=== PATIENT | female | born 1955 | race Asian ===

== ENCOUNTER 2024-04-27 11:32 | Emergency (ER) | payer MEDICARE, MEDICAID, SELFPAY ==
[2024-04-27 11:33] VITALS: BMI 28.3
[2024-04-27 11:39] VITALS: BP 184/100; BP 191/101; PULSE 74; RESP 16; TEMP 36.6; O2SAT 96
--- NOTE | 2024-04-27 11:50 | XR_ITS ---
Examination: CT brain head without contrast. 2-D sagittal coronal reconstructions Date and time of exam:April 16, 2024 1234 hours INDICATIONS: Headaches numbness in the extremities today right eye swelling CTDI: vol (mGy):44.5 DLP: (mGycm):840 Technique: Multiple CT axial sections of the brain have been obtained, 5 mm slice thickness. Contrast has not been administered. 2-D sagittal, coronal reconstructions have been obtained Low dose protocols were performed. One or more of the following dose reduction techniques were used; automated exposure control, adjustment of the mA and/or KV according to patient size, use of iterative reconstruction technique. Findings: No significant ventricular enlargement. Intra-axial or extra-axial hemorrhage density is not seen. No mass effect or midline shift Basal cisterns are not remarkable. Fourth ventricle is midline. Cranial vault intact. Impression: Negative for acute hemorrhage, mass effect or midline shift Consider brain MRI MRA without contrast, stroke protocol, follow-up
--- NOTE | 2024-04-27 11:50 | EKG_ITS ---
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
--- NOTE | 2024-04-27 11:50 | XR_ITS ---
Examination: PA lateral chest 2 views TECHNIQUE: Upright PA lateral chest 2 views Exam date and time: April 27, 2024 12:21 PM INDICATIONS: Onset chest pain elevated blood pressure dizziness today. FINDINGS: Normal heart size Suspicious for parenchymal disease in the right apex possibly cavitary Blunting of the right lateral costophrenic angle No pulmonary edema Blunting of the posterior costophrenic angles IMPRESSION: Recommend CT chest without contrast follow-up to exclude cavitary parenchymal disease right apex
--- NOTE | 2024-04-27 11:50 | PD.EDRME ---
Rapid Medical Screening Exam RME Arrival date/time: 04/27/24 11:32 69-year-old female with history of hypertension presents to the emergency department with complaint of headache, dizziness, generalized bodyaches Chief Complaint: Neuro Symptoms/Deficit Vital signs: Vital Signs Temperature 97.9 F 04/27/24 11:39 Pulse Rate 74 04/27/24 11:39 Respiratory Rate 16 04/27/24 11:39 Blood Pressure 191/101 H 04/27/24 11:39 Pulse Oximetry (%) 96 04/27/24 11:39 Oxygen Delivery Method Room Air 04/27/24 11:39
[2024-04-27 12:16] LABS: Basophils % (Auto) 1 % (0-2.5); Eosinophils # (Auto) 0.2 Thou/mm3 (0.0-0.5); Eosinophils % (Auto) 4 % (0-10); Hematocrit 37.8 % (36.0-46.0); Hemoglobin 12.4 g/dL (12.0-16.0); Immature Granulocytes % (Auto) 0 % (0-0); Immature Granulocytes Auto 0.01 Thou/mm3 (0.00-0.00); Lymphocytes # (Auto) 2.2 Thou/mm3 (1.0-4.8); Lymphocytes % (Auto) 49 % (10-50); Mean Corpuscular HGB Conc 32.8 g/dl (31.0-37.0); Mean Corpuscular Hemoglobin 25.8 pg (25.0-35.0); Mean Corpuscular Volume 79 fL (80-100); Monocytes # (Auto) 0.3 Thou/mm3 (0.0-0.8); Monocytes % (Auto) 7 % (0-12); Neutrophils # (Auto) 1.7 Thou/mm3 (1.8-7.7); Neutrophils % (Auto) 39 % (37-80); Nucleated Red Blood Cell % 0 /100 WBC (0); Platelet Count 206 Thou/mm3 (140-440); RDW Standard Deviation 38.7 fL (36.4-46.3); White Blood Count 4.4 Thou/mm3 (3.6-11.0)
[2024-04-27 12:33] LABS: Partial Thromboplastin Time 26.6 Seconds (22.0-36.0)
[2024-04-27 12:38] LABS: Alanine Aminotransferase 19 U/L (10-49); Albumin, Serum 4.5 gm/dL (3.4-4.8); Albumin/Globulin Ratio 1.4 (1.2-2.2); Alkaline Phosphatase 56 U/L (46-116); Anion Gap 8 (7-16); Aspartate Amino Transferase 20 U/L (0-34); BUN/Creatinine Ratio 25 Ratio (12-20); Bilirubin,Total 0.7 mg/dL (0.3-1.2); Blood Urea Nitrogen 15 mg/dL (9-23); Calcium 9.4 mg/dL (8.3-10.6); Calcium (Corrected) 9.4 mg/dL (8.5-10.1); Carbon Dioxide 26.2 mMol/L (20.0-31.0); Chloride 106 mMol/L (98-107); Creatinine (Component) 0.6 mg/dL (0.6-1.3); Globulin 3.2 gm/dL (2.3-3.5); Glucose 102 mg/dL (74-106); Osmolality,Calculated 280 (275-295); Potassium 3.6 mMol/L (3.4-5.1); Sodium 140 mMol/L (136-145); Total Protein 7.7 gm/dL (5.7-8.2); eGFR > 60 See Note
[2024-04-27 12:44] LABS: B-Type Natriuretic Peptide 37 pg/mL (0-100)
[2024-04-27 12:52] LABS: Troponin I < 0.020 ng/mL (0.0-0.045)
[2024-04-27 13:23] LABS: Collection Type, Urine Clean Catch
[2024-04-27 13:38] LABS: Bilirubin,Urine Negative (Negative); Blood,Urine Negative (Negative); Clarity,Urine Clear (Clear/Hazy); Color,Urine Lt-Yellow (Lt Yel-Yel); Glucose, Urine Negative (Negative); Ketones,Urine Negative (Negative); Leukocyte Esterase,Urine Negative (Negative); Nitrite,Urine Negative (Negative); PH,Urine 6.5 (5.0-7.0); Protein,Urine Negative (Neg - Trace); RBC,Urine 2 /hpf (0-3); Specific Gravity,Urine 1.015 (1.001-1.035); Squamous Epithelial Cell,Urine 1 /hpf (0-5); Urobilinogen,Urine Negative mg/dL (0.0-1.0); WBC,Urine 1 /hpf (0-5)
[2024-04-27 13:50] LABS: Amphetamine/Methamp Scrn,U Negative (Negative); Barbiturate Screen,Urine Negative (Negative); Benzodiazepines Screen,Urine Negative (Negative); Benzoylecgonine Screen, Ur Negative (Negative); Fentanyl Screen,Urine Negative (Negative); Opiate Screen,Urine Negative (Negative); THC Screen,Urine Negative (Negative)
[2024-04-27 14:42] VITALS: BP 187/118; BP 199/93; PULSE 78; RESP 19; TEMP 36.6; O2SAT 100
--- NOTE | 2024-04-27 14:53 | PD.EDNEURO ---
Neuro Symptoms Deficit-RME/HPI General Chief Complaint: Neuro Symptoms/Deficit Stated Complaint: NUMBNESS TO HANDS/LEGS AND BP 200 Time Seen by Provider: 04/27/24 14:46 Source: patient Arrival date/time: 04/27/24 11:32 69-year-old female with a history of hypertension presents to the emergency room with a chief complaint of numbness to her hands and legs, and dizziness with sudden positional changes. Patient was sent here by her primary care provider. Mode of arrival: ambulatory Limitations: no limitations RME / HPI RME / HPI Narrative: 04/27/24 11:32 69-year-old female with history of hypertension presents to the emergency department with complaint of headache, dizziness, generalized bodyaches Related Data Home Medications ?Medication ?Instructions ?Recorded ?Confirmed ergocalciferol (vitamin D2) 1,250 50,000 unit PO QWEEK 10/26/19 10/26/19 mcg (50,000 unit) capsule (Vitamin D2) lisinopril 40 mg tablet 40 mg PO QDAY 10/26/19 10/26/19 Previous Rx's ?Medication ?Instructions ?Recorded meclizine 25 mg tablet 25 mg PO QDAY PRN dizziness #14 10/26/19 tabs lisinopril 20 mg tablet 20 mg PO QDAY #14 tabs 04/27/24 meclizine 25 mg tablet 25 mg PO BID PRN dizziness #14 tabs 04/27/24 Allergies Allergy/AdvReac Type Severity Reaction Status Date / Time No Known Allergies Allergy Verified 04/27/24 11:35 Review of Systems Review of Systems Systems Reviewed: All systems reviewed, normal except as documented Constitutional Constitutional: Reports system reviewed and no additional complaints, except as documented, Denies fatigue, Denies fever(s), Denies headache(s) and Reports weakness Eyes Eyes: Reports system reviewed and no additional complaints, except as documented, Denies blurry vision, Denies change in vision and Denies loss of vision ENT Ears, Nose, Mouth, and Throat: Reports system reviewed and no additional complaints, except as documented, Denies otalgia, Denies headache(s), Denies nasal congestion, Denies throat swelling and Reports vertigo Cardiovascular Cardiovascular: Reports system reviewed and no additional complaints, except as documented, Denies chest pain, Denies dyspnea and Denies dyspnea on exertion Respiratory Respiratory: Reports system reviewed and no additional complaints, except as documented, Denies chest congestion, Denies cough, Denies dyspnea, Denies dyspnea on exertion and Denies wheezing Gastrointestinal Gastrointestinal: Reports system reviewed and no additional complaints, except as documented, Denies abdominal pain, Denies cramping, Denies nausea and Denies vomiting Genitourinary Genitourinary: Reports system reviewed and no additional complaints, except as documented Musculoskeletal Musculoskeletal: Reports system reviewed and no additional complaints, except as documented, Denies abnormal gait and Denies back pain Integumentary/Breasts Skin/Breast: Reports system reviewed and no additional complaints, except as documented and Denies wounds Neurologic Neurologic: Reports system reviewed and no additional complaints, except as documented, Denies abnormal gait, Denies abnormal movements, Denies abnormal speech, Denies behavioral changes, Denies confusion, Denies headache(s), Reports lack of coordination, Denies loss of vision, Reports paresthesias, Reports vertigo and Reports weakness Psychiatric Psychiatric: Reports system reviewed and no additional complaints, except as documented, Denies anxiety, Denies behavioral changes, Denies confusion, Denies depression, Denies paranoia, Denies suicidal ideation and Denies tactile hallucinations Endocrine Endocrine: Reports system reviewed and no additional complaints, except as documented and Denies fatigue Hematologic/Lymphatic Hematologic/Lymphatic: Reports system reviewed and no additional complaints, except as documented and Denies lymphadenopathy Allergic/Immunologic Allergic/Immunologic: Reports system reviewed and no additional complaints, except as documented, Denies throat swelling, Denies urticaria and Denies wheezing Past Medical History Past Medical History CARDIAC: Positive Hypertension; Negative Congestive Heart Failure RESPIRATORY: Negative Chronic Obstructive Pulmonary Disease (COPD) GENITOURINARY: Negative Renal Disease ENDOCRINE: Negative Diabetes Mellitus Type 1 or Diabetes Mellitus Type 2 Social History SMOKING STATUS: Never smoker ED Exam General Limitations: Present no limitations General appearance: Present alert and in no apparent distress Head Head exam: Present atraumatic, normocephalic and normal inspection Eye Eye exam: Present normal appearance, PERRL and EOMI ENT ENT exam: Present normal exam, normal oropharynx and mucous membranes moist Neck Neck exam: Present normal inspection, full ROM and trachea midline Chest Chest inspection: Present normal inspection and symmetric chest wall rise Respiratory Respiratory exam: Present normal lung sounds bilaterally Cardiovascular Cardiovascular exam: Present regular rate, normal rhythm and normal heart sounds Abdominal Exam Abdominal exam: Present soft and normal bowel sounds Extremities Exam Extremities exam: Present normal inspection and full ROM Back Exam Back exam: Present normal inspection and full ROM Neurological Exam Neurological exam: Present alert, oriented X3, CN II-XII intact, normal gait and reflexes normal Expanded Neurological Exam Patient oriented to: Present person, place and time Speech: Present fluid speech Cranial nerves: Normal: EOM function (II, III, IV, ), facial sensation (V) and facial palsy (VII) Cerebellar function: Normal: finger to nose Cerebellar function: Present normal gait Motor strength - LUE: 5/5 Motor strength - RUE: 5/5 Motor strength - LLE: 5/5 Motor strength - RLE: 5/5 Spinal cord function: Absent saddle anesthesia Coma scale eye opening: spontaneous Coma scale motor response: obeys commands Coma scale verbal response: oriented Coma scale total: 15 Psychiatric Psychiatric exam: Present normal affect and normal mood Skin Skin exam: Present warm, dry, intact and normal color Course Quality Measures none Orders Category Date Time Status EKG (ED ONLY) *Do not use* NOW Care 04/27/24 11:[address] head/brain wo con Stat Exams 04/27/24 11:50 Completed EKG (ED Only) Stat Exams 04/27/24 11:50 Draft XR chest 2V Stat Exams 04/27/24 11:50 Completed B-Type Natriuretic Peptide Stat Lab 04/27/24 12:07 Completed CBC Stat Lab 04/27/24 12:07 Completed Comprehensive Metabolic Panel Stat Lab 04/27/24 12:07 Completed Drug Screen,Urine Stat Lab 04/27/24 13:16 Completed Magnesium Stat Lab 04/27/24 12:07 Completed Partial Thromboplastin Time Stat Lab 04/27/24 12:07 Completed Prothrombin Time with INR Stat Lab 04/27/24 12:07 Completed Troponin I Stat Lab 04/27/24 12:07 Completed Urinalysis Stat Lab 04/27/24 13:16 Completed Meclizine HCl [Antivert] Med 04/27/24 14:48 Discontinued 50 mg PO X1 ONE cloNIDine HCL [Catapres] Med 04/27/24 14:48 Discontinued 0.2 mg PO X1 ONE Vital Signs Vital signs: Vital Signs Temperature 97.9 F 04/27/24 11:39 Pulse Rate 74 04/27/24 11:39 Respiratory Rate 16 04/27/24 11:39 Blood Pressure 191/101 H 04/27/24 11:39 Pulse Oximetry (%) 96 04/27/24 11:39 Oxygen Delivery Method Room Air 04/27/24 11:39 O2 saturation 96% within normal limits Neuro Symptoms / Deficit MDM Narrative [facility] Narrative:: 69-year-old female with a history of hypertension presents to the emergency room with a chief complaint of numbness to her hands and legs, and dizziness with sudden positional changes. Patient was sent here by her primary care provider. Patient is hemodynamically stable and in no apparent distress Physical examination shows a normal neurological exam the patient is a GCS of 15 she is alert and oriented x 4 pupils are PERRLA EOMs are intact Patient is having dizziness with sudden positional changes. CT scan was completed and was negative for any acute findings. CBC and CMP were within normal limits Patient was reevaluated in 1 hour with significant improvement after meclizine Patient was discharged with diagnosis of vertigo and educated to follow-up with primary care provider return to the emergency room for any evidence of worsening signs or symptoms. Patient data External records reviewed:: [facility] previous records Clinical information provided by:: patient Social determinants that could affect healthcare access:: none Patient has the following chronic illnesses:: Hypertension How is presenting disease/condition affected by chronic disease/condition?: exacerbated by Evaluation data The following diagnostics were reviewed and interpreted by me:: lab results and radiology exam(s) Lab and/or radiology exams considered but not ordered:: Labs and radiology exams considered and ordered Interpretation Summary: CT head and brain-Findings: No significant ventricular enlargement. Intra-axial or extra-axial hemorrhage density is not seen. No mass effect or midline shift Basal cisterns are not remarkable. Fourth ventricle is midline. Cranial vault intact. Impression: Negative for acute hemorrhage, mass effect or midline shift Consider brain MRI MRA without contrast, stroke protocol, follow-up Medications / Prescriptions Medications or Prescriptions considered but not ordered:: Medication given Medication administrations:: Medication Administration History Discontinued Medications Clonidine (Clonidine Hcl 0.1 Mg Tablet) 0.2 mg PO X1 ONE Stop: 04/27/24 14:49 Last Admin: 04/27/24 14:58 Dose: 0.2 mg Documented By: RENATO Meclizine HCl (Meclizine Hcl 25 Mg Tablet) 50 mg PO X1 ONE Stop: 04/27/24 14:49 Last Admin: 04/27/24 14:59 Dose: 50 mg Documented By: OA Medication given Consultations Consultation(s) initiated? (list below): No Diagnosis Neuro Differential Diagnosis: subarachnoid hemorrhage, cerebrovascular accident, transient cerebral ischemia and other (Vertigo) Most likely diagnosis given after review of the tests above:: Vertigo Admission Indicated Admission indicated?: not indicated Admission Request Was there a request for admission?: No Disposition Plan Disposition Plan: Discharge Discharge Attestation Discharge Attestation: The patient and all family members were given an opportunity to ask questions and understood the discharge instructions. Discharge instructions specifically effects, indications for sooner follow up or return to the emergency department, and the expected course of current diagnosis. Patient condition: Stable Discharge Plan Plan Patient Disposition: HOME (Self Care) Disposition Comment: Stable Prescriptions/Referrals Prescriptions/Med Rec: New meclizine 25 mg tablet 25 mg PO BID PRN (Reason: dizziness) Qty: 14 0RF lisinopril 20 mg tablet 20 mg PO QDAY Qty: 14 0RF No Action ergocalciferol (vitamin D2) [Vitamin D2] 1,250 mcg (50,000 unit) capsule 50,000 unit PO QWEEK Patient Comments: TAKE 1 CAPSULE BY MOUTH ONCE A WEEK FOR 12 WEEKS Rx Instructions: friday. lisinopril 40 mg tablet 40 mg PO QDAY meclizine 25 mg tablet 25 mg PO QDAY PRN (Reason: dizziness) Qty: 14 0RF Referrals: Marcello Concepcion MD [Primary Care Provider] - In 1 week Problem List Clinical Impression: Vertigo Patient/Caregiver Discharge Instructions Education Materials: Vertigo Medicine Tx, Vertigo Staying Safe Additional Instructions: Please follow-up with your primary care provider in the next 24 to 48 hours. Your blood pressure was critically high during your visit. Please follow-up with your primary care provider for blood pressure management. I sent over medication to help you with your vertigo. This medication will help you with your dizziness. For any evidence of worsening signs or symptoms please return to the emergency room immediately Print Language: French Stand Alone Forms: Constance Award Info., Patient Portal Info Letter PA/HAL Supervising Physician SKYLA/HAL Supervising Physician: Dr Agee
[2024-04-27 14:58] VITALS: BP 187/118; PULSE 78
[2024-04-27] MEDS: cloNIDine HCL 0.1 MG TABLET 0.2 MG PO (14:58)
[2024-04-27] MEDS: MECLIZINE HCL 25 MG TABLET 50 MG PO (14:59)
[2024-04-27 15:47] VITALS: BP 144/76; PULSE 77; RESP 19; TEMP 36.4; O2SAT 97
== END 2024-04-27 16:03 | disposition home or self-care (01) ==
PROVIDERS: Nurse Practitioner Primary Care; Emergency Provider Emergency Medicine; PCP Family Medicine
DX: R42 Dizziness and giddiness (principal); R20.0 Anesthesia of skin
CPT/HCPCS: 36415; 70450; 71046; 80053; 80307; 81001; 83735; 83880; 84484; 85025; 85610; 85730; 93005; 99284; A9270